=== PATIENT | female | born 2000 | race Hispanic/Latino ===

== ENCOUNTER 2021-08-03 23:26 | Emergency (ER) | payer OTHER ==
[2021-08-04] MEDS ORDERED: IBUP-2070 PO
[2021-08-04] MEDS ORDERED: IBUPROFEN 600 MG TABLET PO ONE
[2021-08-04 00:18] VITALS: BP 124/66
== END 2021-08-04 00:16 | disposition home or self-care (01) ==
LOC: EDH 23:26
DX: R07.89 Other chest pain (principal); F41.9 Anxiety disorder, unspecified
CPT/HCPCS: 93005